=== PATIENT | male | born 1940 | race Caucasian/White ===

== ENCOUNTER 2017-06-16 13:07 | Emergency (ER) | payer BC ==
[~2017-06-16] VITALS: Ht 182.9 cm; Wt 68.0 kg
[~2017-06-16 13:07] MED LIST: ASPIR 8181 M1 PO; ASPIRIN EC81 M1 PO; ATENOLOL 100MG100 MG PO; CENTRUM SILVER1 EAC2 PO; COZAAR 50 MG TA50 M2 PO; HYDROCHLOROTHIA25 GM MC; HYDRODIURIL PO; IBUPROFEN 200200 M1 PO; METOPROLOL SUCC50 MG PO; ONDANSETRON HCL4 M2 PO; PACERONE 200 M200 M1 PO; SEROQUEL 25 MG25 M1 PO; TYLENOL325 MG PO; ZOFRAN ODT8 MG PO
[2017-06-16] MEDS ORDERED: BACTROBAN CREAM30 G1 TOP (14:16)
== END 2017-06-16 16:29 | disposition home or self-care (01) ==
LOC: ER 13:07
DX: K94.23 Gastrostomy malfunction (principal); I10 Essential (primary) hypertension; F17.210 Nicotine dependence, cigarettes, uncomplicated; Z98.890 Other specified postprocedural states; Y84.8 Other medical procedures as the cause of abnormal reaction of the patient, or of later complication, without mention of misadventure at the time of the procedure

== ENCOUNTER 2017-11-12 15:29 | Emergency (ER) | payer BC ==
[~2017-11-12] VITALS: Ht 177.8 cm; Wt 72.6 kg
[~2017-11-12 15:29] MED LIST changes: +BACTROBAN CREAM30 G1 TOP
== END 2017-11-12 15:37 ==
LOC: ER 15:29
DX: I46.9 Cardiac arrest, cause unspecified (principal); I10 Essential (primary) hypertension; F17.210 Nicotine dependence, cigarettes, uncomplicated